=== PATIENT | female | born 1935 | race Caucasian/White ===

== ENCOUNTER 2017-11-21 14:27 | Inpatient (IN) | payer MEDICARE ==
[~2017-11-21] VITALS: Ht 152.4 cm; Wt 65.6 kg
--- NOTE | ~2017-11-21 | EC ---
PATIENT:ZEHRA MICHAUD DATE OF SERVICE: 11/21/17 SEX: F MEDICAL RECORD: [id number] DATE OF : 37 LOCATION:D.M2 D.210 AGE OF PATIENT: 82 ADMISSION DATE: 11/21/17 REFERRING PHYSICIAN: INTERPRETING PHYSICIAN: SILVER JACOB MD ECHOCARDIOGRAM REPORT ECHO CHARGES 4 ECHO COMPLETE Date: 11/22 CLINICAL DIAGNOSIS: CHF ECHOCARDIOGRAPHIC MEASUREMENTS (adult normal given) AC root (d.<3.7cm) 3.0 cm LV Septum d (<1.2 cm> 1.3 cm Valve Excursion 1.0 cm LV Septum (systole) 1.6 cm Left Atria (s.<4.0cm> 3.5 cm LVPW d(<1.2cm) 1.5 cm RV (d.<2.3cm) 4.0 cm LVPW (sytole) 1.7 cm LV diastole(<5.6CM) 4.1 cm MV E-F(>70mm/sec) cm LV systole 2.4 cm LVOT Diameter 1.9 cm MV exc.(>10mm) 1.7 cm Est.ejection fraction (50-75%) % DOPPLER: LVIT cm/sec A cm/sec E cm/sec LA cm/sec RVSP 28 mmHg LVOT 108 cm/sec AOP1/2T 554 m/s Asc. Ao 187 cm/sec RVOT 91 cm/sec RA cm/sec PA 108 cm/sec AV Gradient Peak 14.0 mmHg AV Mean 7.34 mmHg AV Area 1.4 cm MV Gradient Peak 3.81 mmHg MV Mean 1.39 mmHg MV Area cm COMMENTS: Reel Winder: Hamzah LYMAN Door Tender: 1 Dr. Jacob TAPE# PACS Pericardial Effusion N DATE OF SERVICE: 11/22/2017 Echocardiogram FINDINGS: 1. Left ventricular chamber size is within normal limits. Left ventricular systolic function is normal. Overall ejection fraction estimated at 55%. 2. Left atrium is within normal limits at 3.5 cm. Right atrium and right ventricular chamber sizes are mildly dilated. 3. 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 The remaining valvular structures have normal structure and motion. 4. Doppler interrogation elsewise reveals mild mitral regurgitation, mild tricuspid regurgitation, no other valvular insufficiency or stenosis. Pulmonary systolic pressure is normal estimated at 28 mmHg. 5. No evidence of pericardial effusion or left ventricular thrombus. TRANSINT:[id number] Voice Confirmation ID: [id number] DOCUMENT ID: [id number] SILVER JACOB MD at 0956 CC: [id number] DICTATION DATE: 11/22/17 1338 ICE CREAM DIPPER: 11/22/17 1829 ADM IN [place] [id number] [place] [address]
[~2017-11-21 14:27] MED LIST: BETAPACE 80 MG80 MG PO; CALCIUM 500 + D1 TAB PO; ELIQUIS2.5 MG PO; EZFE 200200 MG PO; GABAPENTIN100 MG PO; GLUCOPHAGE1000 MG PO; GLUCOTROL 5 MG T5 MG PO; HUMALOG 30100 UNITS/ SC; ISOSORBIDE DINI10 MG PO; LISINOPRIL-HCTZ1 T13 PO; LOPRESSOR25 MG PO; MOBIC7.5 MG PO; MULTIPLE VITAMI1 TA1 PO; NORVASC10 MG PO; OCUVITE TABLET1 TA1 PO; ULTRAM50 MG PO; VITAMIN B-12500 MC1 PO; ZOLOFT50 MG PO
[2017-11-21 16:28] VITALS: BP 154/95; BMI 28.0
[2017-11-21 20:00] VITALS: BP 144/85
[2017-11-21 20:25] LABS: BASOPHILS 0 % (0-2); EOSINOPHILS 0 % (0-7); HEMATOCRIT 37.4 % (36.0-48.0); HEMOGLOBIN 11.8 g/dL (12-16); MCHC 31.6 g/dL (31.0-37.0); MCV 91.9 fL (80.0-100.0); MEAN PLATELET VOLUME 10.7 fL (7.4-10.4); MONOCYTES 9.3 % (2-11); NEUTROPHILS 78.7 % (40-80); PLATELET COUNT 114 10x3/uL (130-400); RBC 4.07 10x6/uL (4.00-5.40); RDW 13.9 % (11.5-14.5)
[2017-11-21 20:32] LABS: ALBUMIN 2.5 g/dL (3.4-5.0); ANION GAP 9.7 mmol/L (8-16); BILIRUBIN - TOTAL 0.44 mg/dL (0.2-1.3); CALCIUM 10.2 mg/dL (8.5-10.1); CARBON DIOXIDE 32.3 mmol/L (21.0-32.0); PROTEIN - SERUM 6.7 g/dL (6.4-8.2)
[2017-11-21 23:57] LABS: INR 1.55 (0.85-1.17); PROTIME 18.1 SECONDS (11.6-15.0)
[2017-11-22 01:00] VITALS: BP 141/81
[2017-11-22 05:00] VITALS: BP 170/89
[2017-11-22 08:00] LABS: HEMATOCRIT 37.3 % (36.0-48.0); HEMOGLOBIN 11.7 g/dL (12-16); MCHC 31.4 g/dL (31.0-37.0); MCV 92.6 fL (80.0-100.0); MEAN PLATELET VOLUME 10.9 fL (7.4-10.4); RBC 4.03 10x6/uL (4.00-5.40); WBC 3.9 10x3/uL (4.8-10.8)
[2017-11-22 09:53] VITALS: BP 163/73
[2017-11-22 12:49] VITALS: BP 100/73
[2017-11-22 16:30] VITALS: BP 103/66
[2017-11-22 20:00] VITALS: BP 84/48
[2017-11-23] VITALS (16 sets, daily range): BP systolic 86–165; BP diastolic 44–93; Ht 152.4 cm; Wt 65.6 kg
[2017-11-23 05:31] LABS: BASOPHILS 0.3 % (0-2); EOSINOPHILS 2.4 % (0-7); HEMATOCRIT 40.2 % (36.0-48.0); HEMOGLOBIN 12.6 g/dL (12-16); IMMATURE GRANULOCYTES 5.3 % (0-5); LYMPHOCYTES 31.5 % (15-50); MCH 28.9 pg (26.0-34.0); MCHC 31.3 g/dL (31.0-37.0); MCV 92.2 fL (80.0-100.0); MEAN PLATELET VOLUME 12.2 fL (7.4-10.4); MONOCYTES 14.4 % (2-11); NEUTROPHILS 46.1 % (40-80); PLATELET COUNT 114 10x3/uL (130-400); RBC 4.36 10x6/uL (4.00-5.40); RDW 14.1 % (11.5-14.5); WBC 3.8 10x3/uL (4.8-10.8)
[2017-11-23 05:52] LABS: ALBUMIN 2.3 g/dL (3.4-5.0); ANION GAP 11.7 mmol/L (8-16); BILIRUBIN - TOTAL 0.42 mg/dL (0.2-1.3); CALCIUM 10.7 mg/dL (8.5-10.1); CARBON DIOXIDE 30.3 mmol/L (21.0-32.0); CREATININE - SERUM 0.9 mg/dL (0.6-1.3); PROTEIN - SERUM 5.9 g/dL (6.4-8.2)
[2017-11-23 08:13] LABS: INR 1.35 (0.85-1.17); PROTIME 16.2 SECONDS (11.6-15.0)
[2017-11-23 16:11] LABS: % SATURATION 31 % (15-55); IRON 58 ug/dl (35-150); TOTAL IRON BIND CAPACITY 185 ug/dl (260-445); UNSAT IRON BIND CAPACITY 127 ug/dl (150-375)
[2017-11-23 16:24] LABS: FERRITIN 256 ng/mL (3-244); LDH 182 U/L (81-234)
[2017-11-24 01:05] VITALS: BP 103/52
[2017-11-24 05:58] VITALS: BP 123/67
[2017-11-24 06:40] LABS: BASOPHILS 0.1 % (0-2); EOSINOPHILS 2.3 % (0-7); HEMATOCRIT 39.4 % (36.0-48.0); HEMOGLOBIN 12.6 g/dL (12-16); IMMATURE GRANULOCYTES 3.5 % (0-5); MCH 29.4 pg (26.0-34.0); MCV 92.1 fL (80.0-100.0); MEAN PLATELET VOLUME 11.4 fL (7.4-10.4); MONOCYTES 11.9 % (2-11); NEUTROPHILS 72.2 % (40-80); RBC 4.28 10x6/uL (4.00-5.40); RDW 14.2 % (11.5-14.5)
[2017-11-24 06:46] LABS: PLATELET COUNT 141 10x3/uL (130-400); WBC 7.5 10x3/uL (4.8-10.8)
[2017-11-24 06:54] LABS: ALBUMIN 2.5 g/dL (3.4-5.0); ANION GAP 10.2 mmol/L (8-16); BILIRUBIN - TOTAL 0.78 mg/dL (0.2-1.3); CALCIUM 10.3 mg/dL (8.5-10.1); CARBON DIOXIDE 30.9 mmol/L (21.0-32.0); CREATININE - SERUM 0.9 mg/dL (0.6-1.3); PROTEIN - SERUM 6.3 g/dL (6.4-8.2)
[2017-11-24 06:57] LABS: POTASSIUM - SERUM 3.1 mmol/L (3.5-5.1)
[2017-11-24 08:21] VITALS: BP 148/89
[2017-11-24 10:19] LABS: HAPTOGLOBIN 93 mg/dL (34-200)
[2017-11-24 11:20] LABS: ANA REFLEX - DIRECT Negative (Negative)
[2017-11-24 13:17] LABS: HEPATITIS C ANTIBODY 0.1 (0.0-0.9)
[2017-11-24 13:51] VITALS: BP 154/81
[2017-11-24 17:01] VITALS: BP 95/59
[2017-11-24 21:03] VITALS: BP 100/49
[2017-11-25 01:23] VITALS: BP 116/60
[2017-11-25 05:29] VITALS: BP 115/65
[2017-11-25 05:52] LABS: BASOPHILS 0 % (0-2); EOSINOPHILS 3.2 % (0-7); HEMATOCRIT 36.5 % (36.0-48.0); HEMOGLOBIN 11.5 g/dL (12-16); LYMPHOCYTES 31.7 % (15-50); MCH 29.1 pg (26.0-34.0); MCHC 31.5 g/dL (31.0-37.0); MCV 92.4 fL (80.0-100.0); MEAN PLATELET VOLUME 11.8 fL (7.4-10.4); MONOCYTES 16.7 % (2-11); NEUTROPHILS 46.4 % (40-80); RBC 3.95 10x6/uL (4.00-5.40); RDW 14.2 % (11.5-14.5)
[2017-11-25 06:02] LABS: PLATELET COUNT 107 10x3/uL (130-400); WBC 3.5 10x3/uL (4.8-10.8)
[2017-11-25 06:16] LABS: ANION GAP 6.5 mmol/L (8-16); BILIRUBIN - TOTAL 0.6 mg/dL (0.2-1.3); CALCIUM 9.9 mg/dL (8.5-10.1); CARBON DIOXIDE 31.6 mmol/L (21.0-32.0); CREATININE - SERUM 0.8 mg/dL (0.6-1.3); POTASSIUM - SERUM 4.1 mmol/L (3.5-5.1); PROTEIN - SERUM 5.4 g/dL (6.4-8.2)
[2017-11-25 10:15] VITALS: BP 131/68
[2017-11-25 12:31] VITALS: BP 100/46
[2017-11-25 14:27] LABS: MITOCHONDRIAL ANTIBODY 121.6 Units (0.0-20.0); SMOOTH MUSCLE ABS (ACTIN) 10 Units (0-19)
[2017-11-25 18:21] VITALS: BP 114/66
[2017-11-25 20:54] VITALS: BP 106/49
[2017-11-26] VITALS (16 sets, daily range): BP systolic 80–150; BP diastolic 39–83
[2017-11-26 06:18] LABS: BASOPHILS 0 % (0-2); EOSINOPHILS 3.4 % (0-7); HEMATOCRIT 36.8 % (36.0-48.0); HEMOGLOBIN 11.6 g/dL (12-16); IMMATURE GRANULOCYTES 1.4 % (0-5); LYMPHOCYTES 20.4 % (15-50); MCH 29.4 pg (26.0-34.0); MCHC 31.5 g/dL (31.0-37.0); MCV 93.4 fL (80.0-100.0); MEAN PLATELET VOLUME 10.5 fL (7.4-10.4); MONOCYTES 11.8 % (2-11); PLATELET COUNT 91 10x3/uL (130-400); RBC 3.94 10x6/uL (4.00-5.40); RDW 14.2 % (11.5-14.5); WBC 4.2 10x3/uL (4.8-10.8)
[2017-11-26 06:40] LABS: ALBUMIN 2.2 g/dL (3.4-5.0); ANION GAP 10.5 mmol/L (8-16); BILIRUBIN - TOTAL 0.45 mg/dL (0.2-1.3); CALCIUM 9.7 mg/dL (8.5-10.1); CARBON DIOXIDE 29.9 mmol/L (21.0-32.0); CREATININE - SERUM 0.8 mg/dL (0.6-1.3); POTASSIUM - SERUM 4.4 mmol/L (3.5-5.1); PROTEIN - SERUM 5.9 g/dL (6.4-8.2)
[2017-11-26 07:46] LABS: PLATELET ESTIMATE DECREASED
[2017-11-26 07:49] LABS: INR 1.15 (0.85-1.17); PROTIME 14.3 SECONDS (11.6-15.0)
[2017-11-26 07:50] LABS: APTT 29.4 SECONDS (22.8-39.4)
[2017-11-26 11:22] LABS: ALPHA FETOPROTEIN -(TUMOR MRK) 1.6 ng/mL (0.0-8.3); CEA 2.8 ng/mL (0.0-4.7)
[2017-11-27 01:00] VITALS: BP 113/51
[2017-11-27 04:30] VITALS: BP 101/52
[2017-11-27 05:30] LABS: BASOPHILS 0 % (0-2); EOSINOPHILS 3.6 % (0-7); HEMATOCRIT 35.9 % (36.0-48.0); HEMOGLOBIN 11.1 g/dL (12-16); IMMATURE GRANULOCYTES 1.2 % (0-5); LYMPHOCYTES 20.2 % (15-50); MCH 28.8 pg (26.0-34.0); MCHC 30.9 g/dL (31.0-37.0); MCV 93.2 fL (80.0-100.0); MEAN PLATELET VOLUME 11.3 fL (7.4-10.4); PLATELET COUNT 88 10x3/uL (130-400); RBC 3.85 10x6/uL (4.00-5.40); RDW 14.3 % (11.5-14.5); WBC 4.2 10x3/uL (4.8-10.8)
[2017-11-27 05:52] LABS: ALBUMIN 2.2 g/dL (3.4-5.0); ANION GAP 8.9 mmol/L (8-16); BILIRUBIN - TOTAL 0.4 mg/dL (0.2-1.3); CALCIUM 9.8 mg/dL (8.5-10.1); CARBON DIOXIDE 29.3 mmol/L (21.0-32.0); CREATININE - SERUM 0.8 mg/dL (0.6-1.3); POTASSIUM - SERUM 4.2 mmol/L (3.5-5.1); PROTEIN - SERUM 5.8 g/dL (6.4-8.2)
[2017-11-27 08:59] VITALS: BP 139/77
[2017-11-27 12:00] VITALS: BP 110/52
[2017-11-27 16:50] VITALS: BP 99/58
[2017-11-27 20:00] VITALS: BP 117/64
[2017-11-28] VITALS (7 sets, daily range): BP systolic 110–142; BP diastolic 59–72
[2017-11-28 04:35] LABS: BASOPHILS 0 % (0-2); EOSINOPHILS 1.5 % (0-7); HEMATOCRIT 37.3 % (36.0-48.0); HEMOGLOBIN 11.5 g/dL (12-16); IMMATURE GRANULOCYTES 0.9 % (0-5); LYMPHOCYTES 21.4 % (15-50); MCHC 30.8 g/dL (31.0-37.0); MCV 94.2 fL (80.0-100.0); MEAN PLATELET VOLUME 11.7 fL (7.4-10.4); MONOCYTES 14.8 % (2-11); NEUTROPHILS 61.4 % (40-80); PLATELET COUNT 88 10x3/uL (130-400); RBC 3.96 10x6/uL (4.00-5.40); RDW 14.2 % (11.5-14.5); WBC 4.6 10x3/uL (4.8-10.8)
[2017-11-28 04:44] LABS: ALBUMIN 2.4 g/dL (3.4-5.0); ANION GAP 8.3 mmol/L (8-16); BILIRUBIN - TOTAL 0.58 mg/dL (0.2-1.3); CARBON DIOXIDE 30.2 mmol/L (21.0-32.0); CREATININE - SERUM 0.8 mg/dL (0.6-1.3); POTASSIUM - SERUM 4.5 mmol/L (3.5-5.1); PROTEIN - SERUM 6.2 g/dL (6.4-8.2)
[2017-11-29 01:00] VITALS: BP 102/52
[2017-11-29 05:01] LABS: BASOPHILS 0 % (0-2); EOSINOPHILS 1.9 % (0-7); HEMATOCRIT 34.6 % (36.0-48.0); HEMOGLOBIN 10.8 g/dL (12-16); IMMATURE GRANULOCYTES 0.9 % (0-5); LYMPHOCYTES 22.2 % (15-50); MCH 29.2 pg (26.0-34.0); MCHC 31.2 g/dL (31.0-37.0); MCV 93.5 fL (80.0-100.0); MEAN PLATELET VOLUME 11.8 fL (7.4-10.4); MONOCYTES 16.1 % (2-11); NEUTROPHILS 58.9 % (40-80); PLATELET COUNT 87 10x3/uL (130-400); RDW 14.3 % (11.5-14.5); WBC 4.2 10x3/uL (4.8-10.8)
[2017-11-29 05:40] LABS: ALBUMIN 2.3 g/dL (3.4-5.0); ALKALINE PHOSPHATASE 160 U/L (46-116); ALT (SGPT) 37 U/L (10-68); BILIRUBIN - TOTAL 0.64 mg/dL (0.2-1.3); CALC OSMOLALITY 281 mosm/kg (275-300); CARBON DIOXIDE 27.9 mmol/L (21.0-32.0); CHLORIDE - SERUM 107 mmol/L (98-107); CREATININE - SERUM 0.7 mg/dL (0.6-1.3); GLUCOSE 93 mg/dL (74-106); PROTEIN - SERUM 5.9 g/dL (6.4-8.2); SODIUM 142 mmol/L (136-145); UREA NITROGEN 10 mg/dL (7-18); eGFR NON AFRICAN AMERICAN 85 mL/min (90-120)
[2017-11-29 06:11] VITALS: BP 109/56
[2017-11-29 09:04] VITALS: BP 126/61
[2017-11-29 11:35] VITALS: BP 112/59
[2017-11-29 15:36] VITALS: BP 106/55
[2017-11-29 20:00] VITALS: BP 100/49
[2017-11-30 01:00] VITALS: BP 84/37
[2017-11-30 04:40] LABS: BASOPHILS 0.3 % (0-2); EOSINOPHILS 1.7 % (0-7); HEMATOCRIT 34.9 % (36.0-48.0); HEMOGLOBIN 10.7 g/dL (12-16); IMMATURE GRANULOCYTES 0.6 % (0-5); MCH 28.8 pg (26.0-34.0); MCHC 30.7 g/dL (31.0-37.0); MCV 93.8 fL (80.0-100.0); MEAN PLATELET VOLUME 11.9 fL (7.4-10.4); MONOCYTES 17.2 % (2-11); NEUTROPHILS 57.2 % (40-80); PLATELET COUNT 87 10x3/uL (130-400); RBC 3.72 10x6/uL (4.00-5.40); RDW 14.5 % (11.5-14.5); WBC 3.6 10x3/uL (4.8-10.8)
[2017-11-30 05:00] VITALS: BP 110/55
[2017-11-30 05:23] LABS: ALBUMIN 2.2 g/dL (3.4-5.0); BILIRUBIN - TOTAL 0.5 mg/dL (0.2-1.3); CALCIUM 9.7 mg/dL (8.5-10.1); CARBON DIOXIDE 28.8 mmol/L (21.0-32.0); CREATININE - SERUM 0.8 mg/dL (0.6-1.3); PROTEIN - SERUM 5.7 g/dL (6.4-8.2)
[2017-11-30 06:04] LABS: ANION GAP 9.7 mmol/L (8-16); POTASSIUM - SERUM 4.5 mmol/L (3.5-5.1)
[2017-11-30 08:48] VITALS: BP 124/59
[2017-11-30 13:24] VITALS: BP 142/69
[2017-11-30 16:40] VITALS: BP 90/54
[2017-11-30 20:11] VITALS: BP 121/64
[2017-12-01 05:03] LABS: BASOPHILS 0.5 % (0-2); EOSINOPHILS 2.6 % (0-7); HEMATOCRIT 34.8 % (36.0-48.0); HEMOGLOBIN 10.5 g/dL (12-16); IMMATURE GRANULOCYTES 0.8 % (0-5); LYMPHOCYTES 24.6 % (15-50); MCH 28.2 pg (26.0-34.0); MCHC 30.2 g/dL (31.0-37.0); MCV 93.5 fL (80.0-100.0); MEAN PLATELET VOLUME 11.5 fL (7.4-10.4); MONOCYTES 14.6 % (2-11); NEUTROPHILS 56.9 % (40-80); PLATELET COUNT 85 10x3/uL (130-400); RBC 3.72 10x6/uL (4.00-5.40); RDW 14.4 % (11.5-14.5); WBC 3.9 10x3/uL (4.8-10.8)
[2017-12-01 05:30] LABS: ALBUMIN 2.2 g/dL (3.4-5.0); ANION GAP 8.1 mmol/L (8-16); BILIRUBIN - TOTAL 0.5 mg/dL (0.2-1.3); CALCIUM 9.6 mg/dL (8.5-10.1); CARBON DIOXIDE 29.4 mmol/L (21.0-32.0); CREATININE - SERUM 0.8 mg/dL (0.6-1.3); POTASSIUM - SERUM 4.5 mmol/L (3.5-5.1); PROTEIN - SERUM 5.7 g/dL (6.4-8.2)
[2017-12-01 05:32] VITALS: BP 85/47
[2017-12-01 09:13] VITALS: BP 106/56
[2017-12-01] MEDS ORDERED: NORVASC5 MG PO (09:24)
[2017-12-01] MEDS ORDERED: QUESTRAN PACK4 G/PKT PO (09:24)
[2017-12-01] MEDS ORDERED: PROTONIX40 MG PO (09:25)
[2017-12-01] MEDS ORDERED: COZAAR50 MG PO (09:25)
[2017-12-01] MEDS ORDERED: GLUCOTROL 5 MG T5 MG PO (09:26)
== END 2017-12-01 14:53 | disposition home health service (06) | DRG 314 ==
LOC: D.M2 14:27
PROVIDERS: Family Medicine; Internal Medicine Gastroenterology; Internal Medicine Nephrology; Radiology Vascular & Interventional Radiology; Specialist
PROC: 0FB23ZX Excision of Left Lobe Liver, Percutaneous Approach, Diagnostic (ICD-10-PCS; principal; 2017-11-23 13:38)
PROC: 0HBU3ZX Excision of Left Breast, Percutaneous Approach, Diagnostic (ICD-10-PCS; 2017-11-26)
DX: D18.09 Hemangioma of other sites (principal); I50.23 Acute on chronic systolic (congestive) heart failure; D61.818 Other pancytopenia; R18.8 Other ascites; K74.60 Unspecified cirrhosis of liver; I08.1 Rheumatic disorders of both mitral and tricuspid valves; J44.9 Chronic obstructive pulmonary disease, unspecified; I48.91 Unspecified atrial fibrillation; F32.9 Major depressive disorder, single episode, unspecified; E11.9 Type 2 diabetes mellitus without complications; I11.0 Hypertensive heart disease with heart failure; E78.5 Hyperlipidemia, unspecified; I25.10 Atherosclerotic heart disease of native coronary artery without angina pectoris; N63.0 Unspecified lump in unspecified breast; Z95.5 Presence of coronary angioplasty implant and graft; Z86.73 Personal history of transient ischemic attack (TIA), and cerebral infarction without residual deficits

== ENCOUNTER 2018-04-23 17:21 | Inpatient (IN) | payer MEDICARE ==
[~2018-04-23] VITALS: Ht 152.4 cm; Wt 54.1 kg
[~2018-04-23 17:21] MED LIST changes: +COZAAR50 MG PO; +NORVASC5 MG PO; +PROTONIX40 MG PO; +QUESTRAN PACK4 G/PKT PO
[2018-04-23 18:06] LABS: BASOPHILS 0.3 % (0-2); EOSINOPHILS 4.6 % (0-7); HEMATOCRIT 36.8 % (36.0-48.0); HEMOGLOBIN 11.2 g/dL (12-16); LYMPHOCYTES 24.4 % (15-50); MCH 29.1 pg (26.0-34.0); MCHC 30.4 g/dL (31.0-37.0); MCV 95.6 fL (80.0-100.0); MEAN PLATELET VOLUME 10.9 fL (7.4-10.4); MONOCYTES 13.5 % (2-11); NEUTROPHILS 57.2 % (40-80); PLATELET COUNT 102 10x3/uL (130-400); RBC 3.85 10x6/uL (4.00-5.40); RDW 15.1 % (11.5-14.5); WBC 3.5 10x3/uL (4.8-10.8)
[2018-04-23 18:28] LABS: APPEARANCE CLEAR (CLEAR); BACTERIA MANY /hpf (NONE SEEN); BILIRUBIN NEGATIVE (NEGATIVE); COLOR YELLOW (YELLOW); GLUCOSE NEGATIVE (NEGATIVE); KETONE NEGATIVE (NEGATIVE); NITRITE POSITIVE (NEGATIVE); PROTEIN NEGATIVE (NEGATIVE); RED CELLS - URINE OCC /hpf (0-5); SPECIFIC GRAVITY 1.015 (1.005-1.020); UROBILINOGEN NORMAL (NORMAL); WHITE CELLS - URINE 0-5 /hpf (0-5)
[2018-04-23 18:43] LABS: ALBUMIN 2.9 g/dL (3.4-5.0); ALKALINE PHOSPHATASE 306 U/L (46-116); ALT (SGPT) 27 U/L (10-68); CALC OSMOLALITY 286 mosm/kg (275-300); CALCIUM 9.3 mg/dL (8.5-10.1); CARBON DIOXIDE 33.5 mmol/L (21.0-32.0); CHLORIDE - SERUM 106 mmol/L (98-107); CREATININE - SERUM 0.7 mg/dL (0.6-1.3); POTASSIUM - SERUM 4.4 mmol/L (3.5-5.1); PROTEIN - SERUM 7.2 g/dL (6.4-8.2); SODIUM 143 mmol/L (136-145); UREA NITROGEN 10 mg/dL (7-18); eGFR NON AFRICAN AMERICAN 85 mL/min (90-120)
[2018-04-23 18:48] LABS: GLUCOSE 149 mg/dL (74-106)
[2018-04-23 19:41] LABS: PRO BNP 2150 pg/mL (0-450)
[2018-04-23 19:42] LABS: TROPONIN-I < 0.017 ng/mL (0.000-0.060)
[2018-04-23 23:54] VITALS: BP 107/67; BMI 28.3
[2018-04-24] MEDS ORDERED: PREVALITE POWD231 GM PO (02:24)
[2018-04-24] MEDS ORDERED: GLUCOTROL 5 MG T5 MG PO (02:25)
[2018-04-24 04:00] VITALS: BP 183/78
[2018-04-24 06:00] LABS: BASOPHILS 0 % (0-2); EOSINOPHILS 0.3 % (0-7); HEMATOCRIT 35.6 % (36.0-48.0); HEMOGLOBIN 10.8 g/dL (12-16); LYMPHOCYTES 22.4 % (15-50); MCH 28.5 pg (26.0-34.0); MCHC 30.3 g/dL (31.0-37.0); MCV 93.9 fL (80.0-100.0); MEAN PLATELET VOLUME 11.3 fL (7.4-10.4); MONOCYTES 12.5 % (2-11); NEUTROPHILS 64.8 % (40-80); PLATELET COUNT 98 10x3/uL (130-400); RBC 3.79 10x6/uL (4.00-5.40); RDW 14.8 % (11.5-14.5); WBC 3.2 10x3/uL (4.8-10.8)
[2018-04-24 06:08] LABS: CALC OSMOLALITY 286 mosm/kg (275-300); CALCIUM 9.5 mg/dL (8.5-10.1); CARBON DIOXIDE 34.9 mmol/L (21.0-32.0); CHLORIDE - SERUM 103 mmol/L (98-107); CREATININE - SERUM 0.7 mg/dL (0.6-1.3); GLUCOSE 113 mg/dL (74-106); SODIUM 144 mmol/L (136-145); UREA NITROGEN 9 mg/dL (7-18); eGFR NON AFRICAN AMERICAN 85 mL/min (90-120)
[2018-04-24 06:14] LABS: POTASSIUM - SERUM 3.4 mmol/L (3.5-5.1)
[2018-04-24 09:35] VITALS: BP 172/86
[2018-04-24 10:12] VITALS: Ht 152.4 cm; Wt 54.1 kg
[2018-04-24 11:55] VITALS: BP 184/79
[2018-04-24 13:28] LABS: APTT 31.5 SECONDS (22.8-39.4); INR 1.33 (0.85-1.17)
[2018-04-24 13:32] LABS: % SATURATION 21 % (15-55); IRON 53 ug/dl (35-150); TOTAL IRON BIND CAPACITY 242 ug/dl (260-445); UNSAT IRON BIND CAPACITY 189 ug/dl (150-375)
[2018-04-24 13:47] LABS: MAGNESIUM - SERUM 1.1 mg/dL (1.8-2.4)
[2018-04-24 15:34] VITALS: BP 152/65
[2018-04-25 04:00] VITALS: BP 133/79
[2018-04-25 06:44] LABS: BASOPHILS 0.2 % (0-2); EOSINOPHILS 0.2 % (0-7); HEMATOCRIT 39.9 % (36.0-48.0); HEMOGLOBIN 12.6 g/dL (12-16); LYMPHOCYTES 23.6 % (15-50); MCHC 31.6 g/dL (31.0-37.0); MONOCYTES 15.3 % (2-11); NEUTROPHILS 60.7 % (40-80); PLATELET COUNT 105 10x3/uL (130-400); RBC 4.35 10x6/uL (4.00-5.40); RDW 14.9 % (11.5-14.5)
[2018-04-25 06:51] LABS: MCV 91.7 fL (80.0-100.0); WBC 4.1 10x3/uL (4.8-10.8)
[2018-04-25 07:14] LABS: ALBUMIN 2.9 g/dL (3.4-5.0); ANION GAP 6.8 mmol/L (8-16); BILIRUBIN - TOTAL 1.31 mg/dL (0.2-1.3); CALCIUM 9.9 mg/dL (8.5-10.1); CARBON DIOXIDE 38.2 mmol/L (21.0-32.0); PROTEIN - SERUM 7.4 g/dL (6.4-8.2)
[2018-04-25 08:58] VITALS: BP 155/75
[2018-04-25 16:02] VITALS: BP 126/66
[2018-04-25 20:30] VITALS: BP 123/62
[2018-04-26 04:30] VITALS: BP 152/78
[2018-04-26 07:44] LABS: BASOPHILS 0.2 % (0-2); EOSINOPHILS 0.8 % (0-7); HEMATOCRIT 42.3 % (36.0-48.0); HEMOGLOBIN 13.3 g/dL (12-16); LYMPHOCYTES 18.7 % (15-50); MCH 29.2 pg (26.0-34.0); MCHC 31.4 g/dL (31.0-37.0); MEAN PLATELET VOLUME 11.3 fL (7.4-10.4); MONOCYTES 12.1 % (2-11); NEUTROPHILS 68.2 % (40-80); PLATELET COUNT 116 10x3/uL (130-400); RBC 4.55 10x6/uL (4.00-5.40)
[2018-04-26 08:02] LABS: ANION GAP 8.5 mmol/L (8-16); BILIRUBIN - TOTAL 1.03 mg/dL (0.2-1.3); CALCIUM 10.2 mg/dL (8.5-10.1); CARBON DIOXIDE 38.9 mmol/L (21.0-32.0); MAGNESIUM - SERUM 1.6 mg/dL (1.8-2.4); POTASSIUM - SERUM 3.4 mmol/L (3.5-5.1); PROTEIN - SERUM 7.5 g/dL (6.4-8.2)
[2018-04-26 08:58] VITALS: BP 146/69
[2018-04-26 12:02] VITALS: BP 127/57
[2018-04-26 16:30] VITALS: BP 117/82
[2018-04-26 21:09] VITALS: BP 118/63
[2018-04-27 06:07] VITALS: BP 127/66
[2018-04-27 06:57] LABS: BASOPHILS 0.2 % (0-2); EOSINOPHILS 0.8 % (0-7); HEMATOCRIT 41.3 % (36.0-48.0); HEMOGLOBIN 12.7 g/dL (12-16); IMMATURE GRANULOCYTES 0.2 % (0-5); LYMPHOCYTES 24.6 % (15-50); MCH 28.7 pg (26.0-34.0); MCHC 30.8 g/dL (31.0-37.0); MCV 93.2 fL (80.0-100.0); MEAN PLATELET VOLUME 11.5 fL (7.4-10.4); MONOCYTES 13.5 % (2-11); NEUTROPHILS 60.7 % (40-80); PLATELET COUNT 129 10x3/uL (130-400); RBC 4.43 10x6/uL (4.00-5.40); RDW 14.8 % (11.5-14.5); WBC 6.1 10x3/uL (4.8-10.8)
[2018-04-27 07:11] LABS: ALBUMIN 2.9 g/dL (3.4-5.0); BILIRUBIN - TOTAL 0.86 mg/dL (0.2-1.3); CALCIUM 10.6 mg/dL (8.5-10.1); CARBON DIOXIDE 36.4 mmol/L (21.0-32.0); CREATININE - SERUM 1.2 mg/dL (0.6-1.3); MAGNESIUM - SERUM 1.8 mg/dL (1.8-2.4); POTASSIUM - SERUM 3.4 mmol/L (3.5-5.1); PROTEIN - SERUM 7.7 g/dL (6.4-8.2)
[2018-04-27 08:26] VITALS: BP 136/78
[2018-04-27 11:28] LABS: FOLATE (FOLIC ACID) - SERUM >20.0 ng/mL (>3.0)
[2018-04-27 12:03] VITALS: BP 131/78
[2018-04-27 15:59] VITALS: BP 121/72
[2018-04-27 20:00] VITALS: BP 102/54
[2018-04-28] VITALS: BP 124/74
[2018-04-28 05:39] LABS: BASOPHILS 0.2 % (0-2); EOSINOPHILS 0.3 % (0-7); HEMATOCRIT 42.4 % (36.0-48.0); HEMOGLOBIN 13.2 g/dL (12-16); IMMATURE GRANULOCYTES 0.2 % (0-5); LYMPHOCYTES 20.3 % (15-50); MCH 29.3 pg (26.0-34.0); MCHC 31.1 g/dL (31.0-37.0); MEAN PLATELET VOLUME 11.3 fL (7.4-10.4); MONOCYTES 13.9 % (2-11); NEUTROPHILS 65.1 % (40-80); PLATELET COUNT 113 10x3/uL (130-400); RBC 4.51 10x6/uL (4.00-5.40); RDW 15.1 % (11.5-14.5); WBC 6.3 10x3/uL (4.8-10.8)
[2018-04-28 06:08] LABS: ALBUMIN 2.9 g/dL (3.4-5.0); ANION GAP 10.3 mmol/L (8-16); BILIRUBIN - TOTAL 1.04 mg/dL (0.2-1.3); CALCIUM 10.5 mg/dL (8.5-10.1); CREATININE - SERUM 1.2 mg/dL (0.6-1.3); MAGNESIUM - SERUM 1.8 mg/dL (1.8-2.4); PROTEIN - SERUM 7.5 g/dL (6.4-8.2)
[2018-04-28 06:13] LABS: POTASSIUM - SERUM 4.3 mmol/L (3.5-5.1)
[2018-04-28 07:44] VITALS: BP 108/64
[2018-04-28 10:58] VITALS: BP 112/68
[2018-04-28 15:38] VITALS: BP 104/66
[2018-04-28 20:00] VITALS: BP 105/44
[2018-04-29 04:00] VITALS: BP 142/101
[2018-04-29 04:58] LABS: BASOPHILS 0.2 % (0-2); HEMATOCRIT 44.7 % (36.0-48.0); HEMOGLOBIN 13.8 g/dL (12-16); IMMATURE GRANULOCYTES 0.2 % (0-5); MCH 29.3 pg (26.0-34.0); MCHC 30.9 g/dL (31.0-37.0); MCV 94.9 fL (80.0-100.0); MEAN PLATELET VOLUME 11.5 fL (7.4-10.4); MONOCYTES 13.5 % (2-11); NEUTROPHILS 64.1 % (40-80); PLATELET COUNT 123 10x3/uL (130-400); RBC 4.71 10x6/uL (4.00-5.40); WBC 5.9 10x3/uL (4.8-10.8)
[2018-04-29 05:17] LABS: BILIRUBIN - TOTAL 0.87 mg/dL (0.2-1.3); CALCIUM 10.3 mg/dL (8.5-10.1); CARBON DIOXIDE 38.7 mmol/L (21.0-32.0); CREATININE - SERUM 1.2 mg/dL (0.6-1.3); MAGNESIUM - SERUM 1.6 mg/dL (1.8-2.4); POTASSIUM - SERUM 3.7 mmol/L (3.5-5.1); PROTEIN - SERUM 7.7 g/dL (6.4-8.2)
[2018-04-29 07:44] VITALS: BP 148/78
[2018-04-29 11:16] VITALS: BP 142/73
[2018-04-29 20:00] VITALS: BP 109/64
[2018-04-30 04:00] VITALS: BP 108/63
[2018-04-30 06:00] VITALS: BP 126/60
[2018-04-30 07:16] LABS: ANION GAP 10.1 mmol/L (8-16); CALCIUM 10.3 mg/dL (8.5-10.1); CREATININE - SERUM 1.2 mg/dL (0.6-1.3); POTASSIUM - SERUM 4.1 mmol/L (3.5-5.1)
[2018-04-30 17:13] VITALS: BP 128/67
[2018-04-30 20:00] VITALS: BP 120/68
[2018-05-01] VITALS: BP 128/64
[2018-05-01 04:00] VITALS: BP 120/65
[2018-05-01 14:37] LABS: BASOPHILS 0.3 % (0-2); EOSINOPHILS 0.7 % (0-7); HEMATOCRIT 44.1 % (36.0-48.0); HEMOGLOBIN 13.9 g/dL (12-16); IMMATURE GRANULOCYTES 0.2 % (0-5); LYMPHOCYTES 15.2 % (15-50); MCH 29.6 pg (26.0-34.0); MCHC 31.5 g/dL (31.0-37.0); MEAN PLATELET VOLUME 11.5 fL (7.4-10.4); MONOCYTES 11.4 % (2-11); NEUTROPHILS 72.2 % (40-80); PLATELET COUNT 110 10x3/uL (130-400); RBC 4.69 10x6/uL (4.00-5.40); RDW 14.7 % (11.5-14.5); WBC 5.9 10x3/uL (4.8-10.8)
[2018-05-01 14:55] LABS: ALBUMIN 2.8 g/dL (3.4-5.0); ANION GAP 11.3 mmol/L (8-16); BILIRUBIN - TOTAL 0.68 mg/dL (0.2-1.3); CALCIUM 10.4 mg/dL (8.5-10.1); CARBON DIOXIDE 32.9 mmol/L (21.0-32.0); CREATININE - SERUM 1.2 mg/dL (0.6-1.3); POTASSIUM - SERUM 4.2 mmol/L (3.5-5.1)
[2018-05-01 21:20] VITALS: BP 105/55
[2018-05-02 05:53] LABS: BASOPHILS 0.2 % (0-2); EOSINOPHILS 1.7 % (0-7); HEMATOCRIT 43.7 % (36.0-48.0); HEMOGLOBIN 13.8 g/dL (12-16); IMMATURE GRANULOCYTES 0.4 % (0-5); LYMPHOCYTES 27.6 % (15-50); MCH 29.3 pg (26.0-34.0); MCHC 31.6 g/dL (31.0-37.0); MCV 92.8 fL (80.0-100.0); MEAN PLATELET VOLUME 12.3 fL (7.4-10.4); MONOCYTES 11.8 % (2-11); NEUTROPHILS 58.3 % (40-80); PLATELET COUNT 105 10x3/uL (130-400); RBC 4.71 10x6/uL (4.00-5.40); RDW 14.7 % (11.5-14.5); WBC 5.2 10x3/uL (4.8-10.8)
[2018-05-02 05:59] VITALS: BP 137/80
[2018-05-02 06:36] LABS: ALBUMIN 2.7 g/dL (3.4-5.0); ANION GAP 9.5 mmol/L (8-16); BILIRUBIN - TOTAL 0.95 mg/dL (0.2-1.3); CALCIUM 10.9 mg/dL (8.5-10.1); CARBON DIOXIDE 34.3 mmol/L (21.0-32.0); POTASSIUM - SERUM 4.8 mmol/L (3.5-5.1); PROTEIN - SERUM 7.2 g/dL (6.4-8.2)
[2018-05-02 08:01] VITALS: BP 134/73
[2018-05-02 21:04] VITALS: BP 109/56
[2018-05-03 04:55] LABS: BASOPHILS 0.2 % (0-2); EOSINOPHILS 1.5 % (0-7); HEMATOCRIT 38.9 % (36.0-48.0); HEMOGLOBIN 12.1 g/dL (12-16); IMMATURE GRANULOCYTES 0.6 % (0-5); LYMPHOCYTES 34.1 % (15-50); MCH 28.8 pg (26.0-34.0); MCHC 31.1 g/dL (31.0-37.0); MCV 92.6 fL (80.0-100.0); MEAN PLATELET VOLUME 11.3 fL (7.4-10.4); MONOCYTES 13.3 % (2-11); NEUTROPHILS 50.3 % (40-80); PLATELET COUNT 92 10x3/uL (130-400); RDW 14.7 % (11.5-14.5); WBC 5.3 10x3/uL (4.8-10.8)
[2018-05-03 05:18] LABS: ALBUMIN 2.4 g/dL (3.4-5.0); ANION GAP 3.9 mmol/L (8-16); BILIRUBIN - TOTAL 0.71 mg/dL (0.2-1.3); CALCIUM 10.3 mg/dL (8.5-10.1); CARBON DIOXIDE 35.4 mmol/L (21.0-32.0); POTASSIUM - SERUM 4.3 mmol/L (3.5-5.1); PROTEIN - SERUM 6.2 g/dL (6.4-8.2)
[2018-05-03 06:12] VITALS: BP 127/68
[2018-05-03 07:55] VITALS: BP 126/71
[2018-05-03 11:55] VITALS: BP 112/68
[2018-05-03 16:29] VITALS: BP 121/63
[2018-05-03 20:00] VITALS: BP 108/70
[2018-05-04 04:00] VITALS: BP 137/81
[2018-05-04 05:36] LABS: BASOPHILS 0.2 % (0-2); EOSINOPHILS 1.3 % (0-7); HEMOGLOBIN 12.4 g/dL (12-16); IMMATURE GRANULOCYTES 0.4 % (0-5); LYMPHOCYTES 25.1 % (15-50); MCH 29.3 pg (26.0-34.0); MCHC 31.8 g/dL (31.0-37.0); MCV 92.2 fL (80.0-100.0); MEAN PLATELET VOLUME 12.7 fL (7.4-10.4); MONOCYTES 16.1 % (2-11); NEUTROPHILS 56.9 % (40-80); PLATELET COUNT 97 10x3/uL (130-400); RBC 4.23 10x6/uL (4.00-5.40); RDW 14.9 % (11.5-14.5); WBC 5.5 10x3/uL (4.8-10.8)
[2018-05-04 06:16] LABS: ALBUMIN 2.5 g/dL (3.4-5.0); BILIRUBIN - TOTAL 0.86 mg/dL (0.2-1.3); CALCIUM 10.1 mg/dL (8.5-10.1); CARBON DIOXIDE 34.6 mmol/L (21.0-32.0); CREATININE - SERUM 1.1 mg/dL (0.6-1.3); PROTEIN - SERUM 6.5 g/dL (6.4-8.2)
[2018-05-04 06:17] LABS: ANION GAP 9.5 mmol/L (8-16); POTASSIUM - SERUM 5.1 mmol/L (3.5-5.1)
[2018-05-04 08:21] VITALS: BP 148/86
[2018-05-04 11:23] VITALS: BP 132/64
[2018-05-04 15:39] VITALS: BP 129/70
== END 2018-05-04 18:36 | disposition home health service (06) | DRG 177 ==
LOC: D.ER 17:21 → D.M2 18:39
PROVIDERS: Emergency Medicine; Family Medicine; Internal Medicine Nephrology
DX: J69.0 Pneumonitis due to inhalation of food and vomit (principal); G92 Toxic encephalopathy; J96.22 Acute and chronic respiratory failure with hypercapnia; J96.21 Acute and chronic respiratory failure with hypoxia; I50.33 Acute on chronic diastolic (congestive) heart failure; J44.1 Chronic obstructive pulmonary disease with (acute) exacerbation; J44.0 Chronic obstructive pulmonary disease with (acute) lower respiratory infection; D61.818 Other pancytopenia; N39.0 Urinary tract infection, site not specified; I69.354 Hemiplegia and hemiparesis following cerebral infarction affecting left non-dominant side; J15.6 Pneumonia due to other Gram-negative bacteria; I48.91 Unspecified atrial fibrillation; E11.9 Type 2 diabetes mellitus without complications; K74.60 Unspecified cirrhosis of liver; E87.6 Hypokalemia; I25.10 Atherosclerotic heart disease of native coronary artery without angina pectoris; I11.0 Hypertensive heart disease with heart failure; E78.5 Hyperlipidemia, unspecified; F32.9 Major depressive disorder, single episode, unspecified; Z95.5 Presence of coronary angioplasty implant and graft